=== PATIENT | male | born 1950 | race Caucasian/White ===

== ENCOUNTER 2018-09-02 16:13 | Emergency (ER) | payer OTHER, MEDICARE ==
[~2018-09-02] VITALS: Ht 170.2 cm; Wt 78.9 kg
[2018-09-02 16:26] VITALS: BP_SYST 162
== END 2018-09-02 18:58 | disposition home or self-care (01) ==
LOC: SED 16:13
DX: S61.412A Laceration without foreign body of left hand, initial encounter (principal); S61.217A Laceration without foreign body of left little finger without damage to nail, initial encounter; I10 Essential (primary) hypertension; W54.0XXA Bitten by dog, initial encounter; Y93.89 Activity, other specified; Y92.89 Other specified places as the place of occurrence of the external cause; Y99.8 Other external cause status
CPT/HCPCS: 99283